=== PATIENT | male | born 1975 | race Two or more races ===

== ENCOUNTER 2023-03-07 18:38 | Inpatient (IN) | payer OTHER ==
[~2023-03-07] VITALS: Ht 165.1 cm; Wt 76.5 kg
[2023-03-07] MEDS ORDERED: SODIUM CHLORIDE 0.9% 1,000 ML IV ONE (20:30)
[2023-03-07 20:33] LABS: BASOPHILS % (AUTO) 0.6 % (0.0-2.0); EOSINOPHILS % (AUTO) 0.5 % (1.0-6.0); HEMATOCRIT 43.8 % (41-53); HEMOGLOBIN 14.6 g/dL (13.5-17.5); LYMPHOCYTES # (AUTO) 1.3 K/uL (1.0-4.8); MEAN CORPUSCULAR HEMOGLOBIN 30.4 pg (26.0-34.0); MEAN CORPUSCULAR HGB CONC 33.4 G/dL (31.0-37.0); MEAN CORPUSCULAR VOLUME 91 fL (80-100); MONOCYTES # (AUTO) 0.8 K/uL (0.1-1.0); MONOCYTES % (AUTO) 4.9 % (2.0-9.0); NEUTROPHILS # (AUTO) 14.4 K/uL (1.8-7.7); PLATELET COUNT (AUTO) 237 K/uL (150-450); RED BLOOD CELL COUNT(AUTO) 4.82 MIL/uL (4.50-5.90); RED CELL DISTRIBUTION WIDTH 13.5 % (11.5-14.5); WHITE BLOOD COUNT (AUTO) 16.7 K/uL (4.5-11.0)
[2023-03-07 20:45] LABS: APPEARANCE,URINE CLEAR (CLEAR); BILIRUBIN,URINE NEGATIVE (NEGATIVE); COLOR,URINE LIGHT YELLOW (YELLOW); GLUCOSE, URINE (UA) NEGATIVE (NEGATIVE); KETONES,URINE NEGATIVE (NEGATIVE); LEUKOCYTE ESTERASE ,URINE NEGATIVE (NEGATIVE); NITRATE,URINE NEGATIVE (NEGATIVE); OCCULT BLOOD,URINE NEGATIVE (NEGATIVE); PH,URINE 6.5 (5.0-8.0); PROTEIN,URINE NEGATIVE (NEGATIVE); SPECIFIC GRAVITIY, URINE 1.007 (1.003-1.030); UROBILINOGEN,URINE <=1.0 mg/dL (<=1.0)
[2023-03-07 20:47] LABS: ANION GAP 11 mmol/L (8-16); CARBON DIOXIDE 23 mmol/L (22-29); CHLORIDE 103 mmol/L (98-107); CREATININE 0.84 mg/dL (0.60-1.30); GLOMERULAR FILTR. RATE CALC > 60 mL/min (>60); GLUCOSE,RANDOM 152 mg/dL (70-110); POTASSIUM 3.2 mmol/L (3.5-5.1); SODIUM SERUM 137 mmol/L (136-145); UREA NITROGEN, BLOOD 12 mg/dL (7-18)
[2023-03-07 20:51] LABS: GLUCOMETER DEV NAME(LOC) ERT.5; GLUCOSE,POINT OF CARE 147 MG/DL (70-110)
[2023-03-07 20:51] LABS: AMPHET/METH SCREEN,URINE NEGATIVE (NEGATIVE); BARBITURATE SCREEN, URINE NEGATIVE (NEGATIVE); BENZODIAZEPINES SCREEN,URINE NEGATIVE (NEGATIVE); CANNABINOID SCREEN,URINE POSITIVE (NEGATIVE); COCAINE SCREEN,URINE NEGATIVE (NEGATIVE); METHADONE SCREEN, URINE NEGATIVE (NEGATIVE); OPIATE SCREEN,URINE NEGATIVE (NEGATIVE); PH,URINE DRUG SCREEN 6.5 (5.0-8.0); PHENCYCLIDINE SCREEN,URINE NEGATIVE (NEGATIVE)
[2023-03-07 20:53] LABS: ALANINE AMINOTRANSFERASE 31 U/L (12-78); ALBUMIN 3.5 g/dL (3.4-5.0); ALKALINE PHOSPHATASE 61 U/L (46-116); ASPARTATE AMINOTRANSFERASE 19 U/L (15-37); BILIRUBIN,TOTAL 0.9 mg/dL (0.1-1.0); TOTAL PROTEIN, SERUM 6.4 g/dL (6.4-8.2)
[2023-03-07 20:57] LABS: ALCOHOL, URINE DRUG SCREEN NEGATIVE (NEGATIVE)
[2023-03-07 21:03] LABS: ALCOHOL, BLOOD (SERUM) < 3 mg/dL (0-10)
[2023-03-07] MEDS ORDERED: ONDANSETRON HCL 4 MG/2 ML VIAL IVP PRN (23:00)
[2023-03-07] MEDS ORDERED: DEXTROSE 50%-WATER 25 GM/50 ML SYRINGE IVP PRN (23:00)
[2023-03-07] MEDS ORDERED: SODIUM CHLORIDE 0.9% 1,000 ML IV SCH (23:00)
[2023-03-07] MEDS ORDERED: ACETAMINOPHEN 325 MG TABLET PO PRN (23:00)
[2023-03-07] MEDS ORDERED: INSULIN LISPRO 100 UNITS/ML SQ PRN (23:00)
[2023-03-07] MEDS ORDERED: CefTRIAXone 1 GM/DEXTROSE 50 ML IV ONE (23:00)
[2023-03-07] MEDS ORDERED: AZITHROMYCIN 500 MG/NS 250 ML IV ONE (23:00)
[2023-03-07 23:12] LABS: COVID AG,FIA SOURCE NASAL SWAB
[2023-03-07 23:32] LABS: SARS-COV2 (COVID) ANTIGEN,FIA Negative (Negative)
[2023-03-07 23:34] LABS: INFLUENZA TYPE A NEGATIVE FOR TYPE A (NEGATIVE); INFLUENZA TYPE B NEGATIVE FOR TYPE B (NEGATIVE)
[2023-03-07 23:35] LABS: TROPONIN I-HIGH SENSITIVITY 7 ng/L (<76)
[2023-03-07 23:53] LABS: THYROID STIMULATING HORMONE 1.29 uIU/mL (0.36-3.74)
[2023-03-07 23:54] LABS: AMMONIA 12 umol/L (11-32)
[2023-03-08] MEDS ORDERED: VANCOMYCIN HCL 1.5 GM in DEXTROSE 5%-WATER 250 ML IV ONE ×2
[2023-03-08 06:25] VITALS: BP 132/93; PULSE 69; RESP 20; TEMP 97.5
[2023-03-08] MEDS ORDERED: POTASSIUM CHLORIDE 20 MEQ ER TABLET PO ONE (07:00)
[2023-03-08 07:05] LABS: GLUCOMETER DEV NAME(LOC) 5N.1C; GLUCOSE,POINT OF CARE 94 MG/DL (70-110)
[2023-03-08] MEDS ORDERED: DOCUSATE SODIUM 100 MG CAPSULE PO SCH (09:00)
[2023-03-08] MEDS ORDERED: HEPARIN SODIUM,PORCINE 5,000 UNITS/ML VIAL SQ SCH (12:00)
[2023-03-08] MEDS ORDERED: AZIT-103 PO (15:12)
[2023-03-08] MEDS ORDERED: CefTRIAXone 1 GM/DEXTROSE 50 ML IV SCH (23:00)
[2023-03-09] MEDS ORDERED: AZITHROMYCIN 500 MG/NS 250 ML IV SCH
== END 2023-03-08 08:30 | disposition left against medical advice (07) | DRG 193 ==
LOC: EMS 18:41 → 5S 03-08 05:28 → EDBD 03-08 05:28
PROVIDERS: ADMIT Internal Medicine; ATTEND Internal Medicine
DX: J18.9 Pneumonia, unspecified organism (principal); G93.41 Metabolic encephalopathy; Z59.02 Unsheltered homelessness; I95.9 Hypotension, unspecified; F17.210 Nicotine dependence, cigarettes, uncomplicated; Z20.822 Contact with and (suspected) exposure to COVID-19; Z53.29 Procedure and treatment not carried out because of patient's decision for other reasons
CPT/HCPCS: 70450; 71045; 74176; 80053; 80307; 81003; 82140; 82550; 82948; 82962; 83605; 84443; 84484; 85025; 87040; 87804; 93005; 99285; G0480; J0456; J0696; J3370; J7060; 36415-L1; 36415-TC

== ENCOUNTER 2023-03-08 14:12 | Emergency (ER) | payer OTHER ==
[~2023-03-08] VITALS: Ht 172.7 cm; Wt 72.7 kg
[2023-03-08 14:25] VITALS: TEMP 98.1
[2023-03-08] MEDS ORDERED: AZIT-103 PO (15:12)
[2023-03-08] MEDS ORDERED: AZITHROMYCIN 500 MG TABLET PO ONE (15:15)
[2023-03-08 15:29] VITALS: BP 137/77; PULSE 84; RESP 18
== END 2023-03-08 15:31 | disposition home or self-care (01) ==
LOC: EMS 14:12
DX: J18.9 Pneumonia, unspecified organism (principal); F17.210 Nicotine dependence, cigarettes, uncomplicated; Z98.890 Other specified postprocedural states
CPT/HCPCS: 99283; Q9967